=== PATIENT | female | born 1960 | race American Indian/Alaskan Native ===

== ENCOUNTER 2018-02-11 16:41 | Emergency (ER) | payer OTHER, MEDICAID ==
[~2018-02-11] VITALS: Ht 157.5 cm; Wt 47.0 kg
[~2018-02-11 16:41] MED LIST: AMLO5TAB4 PO; DEPER5 PO; DIVAL250 PO; DOXE10CA2 PO; FLUC100T42 PO; KETO120S2 TP; MONT10TA24 PO; NAPR375T5 PO
[2018-02-11 16:51] VITALS: BP 129/56
== END 2018-02-11 18:46 | disposition home or self-care (01) ==
LOC: ER 18:37
DX: S60.00XA Contusion of unspecified finger without damage to nail, initial encounter (principal); I10 Essential (primary) hypertension; J45.909 Unspecified asthma, uncomplicated; W22.8XXA Striking against or struck by other objects, initial encounter; Y93.89 Activity, other specified; Y92.89 Other specified places as the place of occurrence of the external cause; Y99.8 Other external cause status
CPT/HCPCS: 73140; 99284

== ENCOUNTER 2018-08-12 09:16 | Emergency (ER) | payer MEDICARE, MEDICAID ==
[~2018-08-12] VITALS: Ht 157.5 cm; Wt 60.0 kg
[~2018-08-12 09:16] MED LIST changes: -KETO120S2 TP; +KETO120S3 TP
[2018-08-12 13:02] VITALS: BP 129/62
== END 2018-08-12 13:03 | disposition home or self-care (01) ==
LOC: ER 09:16
DX: S93.501A Unspecified sprain of right great toe, initial encounter (principal); J45.909 Unspecified asthma, uncomplicated; M85.871 Other specified disorders of bone density and structure, right ankle and foot; I10 Essential (primary) hypertension; W22.8XXA Striking against or struck by other objects, initial encounter; Y93.89 Activity, other specified; Y92.89 Other specified places as the place of occurrence of the external cause; Y99.8 Other external cause status; Z79.899 Other long term (current) drug therapy
CPT/HCPCS: 73630; 99284

== ENCOUNTER 2019-03-15 10:57 | Emergency (ER) | payer MEDICARE, MEDICAID ==
[~2019-03-15] VITALS: Ht 144.8 cm; Wt 53.0 kg
[2019-03-15 15:42] VITALS: BP 119/49
== END 2019-03-15 15:43 | disposition home or self-care (01) ==
LOC: ER 10:57
DX: S50.02XA Contusion of left elbow, initial encounter (principal); S80.02XA Contusion of left knee, initial encounter; J45.909 Unspecified asthma, uncomplicated; I10 Essential (primary) hypertension; W18.39XA Other fall on same level, initial encounter; Y93.89 Activity, other specified; Y92.89 Other specified places as the place of occurrence of the external cause; Y99.8 Other external cause status; Z79.899 Other long term (current) drug therapy
CPT/HCPCS: 73080; 73560; 99283

== ENCOUNTER 2020-09-25 19:39 | Emergency (ER) | payer MEDICARE, MEDICAID ==
[~2020-09-25] VITALS: Ht 147.3 cm; Wt 60.0 kg
[~2020-09-25 19:39] MED LIST changes: -MONT10TA24 PO; +MONT10TA26 PO
[2020-09-25 22:46] LABS: BASOPHILS % 0.9 % (0.0-2.0); EOSINOPHILS % 9.6 % (0.0-5.0); HEMATOCRIT. 42.8 % (36.0-48.0); HEMOGLOBIN. 13.5 g/dL (12.0-16.0); LYMPHOCYTES % 14.4 % (20.0-50.0); MEAN CORPUSCULAR HEMOGLOBIN 27.7 pg (28.0-32.0); MEAN CORPUSCULAR VOLUME 87.7 fL (81.0-99.0); MONOCYTES % 8.3 % (2.0-8.0); NEUTROPHILS % 66.8 % (40.0-76.0); PLATELET 272 x1000/uL (130-400); RED BLOOD CELL COUNT 4.88 mill/uL (4.2-5.4); RED CELL DISTRIBUTION WIDTH 16.7 % (11.6-14.6)
[2020-09-25 22:54] LABS: CHLORIDE 113 mEq/L (98-107)
[2020-09-26 02:01] VITALS: BP 125/54
== END 2020-09-26 07:30 | disposition home or self-care (01) ==
LOC: ER 19:39
DX: J18.9 Pneumonia, unspecified organism (principal); I10 Essential (primary) hypertension; F17.200 Nicotine dependence, unspecified, uncomplicated; R62.50 Unspecified lack of expected normal physiological development in childhood
CPT/HCPCS: 36415; 71045; 80048; 85025; 93005; 99285